=== PATIENT | female | born 1980 | race Caucasian/White ===

== ENCOUNTER 2024-10-18 15:12 | Emergency (ER) | payer OTHER, SELFPAY ==
[2024-10-18 15:14] VITALS: BP 153/97; PULSE 82; RESP 18; TEMP 36.8; O2SAT 99; BMI 36.9
[2024-10-18 15:16] VITALS: BP 153/97; PULSE 82; RESP 17; TEMP 36.8; O2SAT 99
--- NOTE | 2024-10-18 15:27 | EX.ED.DYSGE1 ---
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 She states occasionally they are slightly swollen. She has no motor dysfunction. Occasionally she has the sensation both knees are swollen as well. She reports having a generalized rash a few days ago which resolved on its own. Her temperature last night was 99 ?F. She has no nausea, vomiting, chest pain, shortness of breath, upper respiratory symptoms, or GI symptoms. She is not on any medications other than [id number] ibuprofen as needed. PFSH <MARCELO Sandhu Last Filed: 10/18/24 17:04> PFS Medical History no medical history Home Medications ?Medication ?Instructions ?Recorded ?Last Taken ?Type naproxen 500 mg tablet (Naprosyn) 500 mg PO BID PRN pain #20 tabs 10/18/24 Unknown Rx Allergy/AdvReac Type Severity Reaction Status Date / Time No Known Allergies Allergy Verified 10/18/24 15:12 Family History no significant family his Surgical History (Updated 10/18/24 @ 15:29 by Becki Roman) Hx of cholecystectomy Social History Smoking Status: Never smoker ROS <MARCELO Sandhu - Last Filed: 10/18/24 17:04> ROS ED ROS Narrative Constitutional: Negative for fever, chills, malaise. CVS: Negative for chest pain. Respiratory: Negative for shortness of breath. GI: Negative for abdominal pain, nausea, vomiting. EXAM <MARCELO Sandhu - Last Filed: 10/18/24 17:04> Physical Exam Narrative Exam Narrative: CONST: Patient sitting in no acute distress. EYES: Normal inspection. NECK: Normal inspection. RESP: No respiratory distress, CTAB. CVS: Regular rate and rhythm, no murmur, no gallop. SKIN: Color normal, no rash, warm, dry, intact. EXTREMITIES: Normal appearance of upper and lower extremities. Full range of motion, 5/5 strength, normal sensation, 2+ radial and DP pulses. No skin changes, warmth or swelling is noted. NEURO: Alert and answering questions appropriately. PSYCH: Normal affect. Const Vital Signs: 10/18/24 15:14 10/18/24 15:16 10/18/24 15:22 Temperature 98.3 F 98.3 F Temperature Source Oral Oral Pulse Rate 82 82 Respiratory Rate 18 17 Respiratory Effort Normal Non-Labored Respiratory Pattern Normal Blood Pressure 153/97 H 153/97 H Blood Pressure Mean 115 115 Pulse Ox 99 99 Oxygen Delivery Method Room Air Room Air 10/18/24 16:30 Temperature 98.3 F Temperature Source Pulse Rate 82 Respiratory Rate 17 Respiratory Effort Respiratory Pattern Blood Pressure 153/97 H Blood Pressure Mean 115 Pulse Ox 99 Oxygen Delivery Method <Dr. Joesph Toribio DO - Last Filed: 10/20/24 14:18> Physical Exam Const Vital Signs: 10/18/24 15:14 10/18/24 15:16 10/18/24 15:22 Temperature 98.3 F 98.3 F Temperature Source Oral Oral Pulse Rate 82 82 Respiratory Rate 18 17 Respiratory Effort Normal Non-Labored Respiratory Pattern Normal Blood Pressure 153/97 H 153/97 H Blood Pressure Mean 115 115 Pulse Ox 99 99 Oxygen Delivery Method Room Air Room Air 10/18/24 16:30 Temperature 98.3 F Temperature Source Pulse Rate 82 Respiratory Rate 17 Respiratory Effort Respiratory Pattern Blood Pressure 153/97 H Blood Pressure Mean 115 Pulse Ox 99 Oxygen Delivery Method MDM <MARCELO Sandhu - Last Filed: 10/18/24 17:04> [facility] Narrative Medical decision making narrative: History gathered from: Patient and spouse 44-year-old female presents with 1 week of bilateral hand pain and tingling. Reports occasional swelling which is not present now. She appears well and nontoxic. Vital signs stable. Her exam is completely benign. Upper and lower extremities appear normal and are neurovascularly intact. Labs show WBC of 3.6. Hemoglobin normal at 12.5. Platelets 166. Chemistry panel unremarkable. Glucose is 117. She was treated with IV Toradol and I prescribed naproxen. Differential includes but not limited to peripheral neuropathy, rheumatological process/arthropathy etc. I recommended follow-up with her primary care doctor for further evaluation and she was discharged in stable condition. Lab Data Labs: Laboratory Results - last 24 hr 10/18/24 15:29 WBC 3.6 L RBC 3.80 L Hgb 12.5 Hct 34.5 L MCV 90.8 MCH 32.9 H MCHC 36.2 H RDW Std Deviation 40.6 RDW Coeff of Rico 12.3 Plt Count 166 MPV 11.5 Immature Gran % (Auto) 0.600 Neut % (Auto) 70.0 Lymph % (Auto) 16.6 L Dixie % (Auto) 8.6 Eos % (Auto) 3.9 Baso % (Auto) 0.3 Absolute Neuts (auto) 2.5 Absolute Lymphs (auto) 0.60 L Nucleated RBC % 0 Differential Comment SEE COMMENT Atypical Lymphocytes 1+ Platelet Estimate ADEQUATE RBC Morphology N CHROM Anisocytosis RARE Macrocytosis RARE Sodium 139 Potassium 3.9 Chloride 104 Carbon Dioxide 25.2 Anion Gap 10 BUN 9 Creatinine 0.72 Estim Creat Clear Calc 110.17 Est GFR (MDRD) Non-Af 107 BUN/Creatinine Ratio 12.8 Glucose 117 H Calcium 9.1 Magnesium 2.1 <Dr. Joesph Darden-Concepcion, DO - Last Filed: 10/20/24 14:18> [facility] MDM Narrative Medical decision making narrative: History gathered from: Patient and spouse 44-year-old female presents with 1 week of bilateral hand pain and tingling. Reports occasional swelling which is not present now. She appears well and nontoxic. Vital signs stable. Her exam is completely benign. Upper and lower extremities appear normal and are neurovascularly intact. Labs show WBC of 3.6. Hemoglobin normal at 12.5. Platelets 166. Chemistry panel unremarkable. Glucose is 117. She was treated with IV Toradol and I prescribed naproxen. Differential includes but not limited to peripheral neuropathy, rheumatological process/arthropathy etc. I recommended follow-up with her primary care doctor for further evaluation and she was discharged in stable condition. Supervisory Physician Note Patient was seen and examined with the Advanced Practice Provider. Nursing notes and vital signs have been reviewed. Pertinent old records have been reviewed. I agree with the essential elements of the JERRI's history, physical exam, assessment, and plan. The differential diagnosis and management options were discussed with the JERRI. I participated in determining and agree with the management, procedures, final impression and disposition as documented. See changes noted by me. Please see addendum or separate note for any additional details. Gen: A&O x3, NAD Head: Normocephalic, atraumatic Eyes: No sclera icterus, conjunctiva clear, PERRL, EOMI ENT: Moist mucous membranes Neck: Trachea midline, No JVD CV: RRR, no murmurs, no peripheral edema Resp: Lungs CTA BL, no w/r/c GI: Abd soft, non-distended, non-tender, no r/r/g Musc: Full ROM, no deformity, extremities and joints nontender, no swelling/erythema/warmth of any body part including the joints, radial/DP/PT pulses +2 bilaterally Skin: Warm, dry, no rash Neuro: Alert, oriented, grossly intact, sensation intact Psych: Cooperative, appropriate mood and affect Lab Data Labs: Laboratory Results - last 24 hr 10/18/24 15:29 WBC 3.6 L RBC 3.80 L Hgb 12.5 Hct 34.5 L MCV 90.8 MCH 32.9 H MCHC 36.2 H RDW Std Deviation 40.6 RDW Coeff of Rico 12.3 Plt Count 166 MPV 11.5 Immature Gran % (Auto) 0.600 Neut % (Auto) 70.0 Lymph % (Auto) 16.6 L Dixie % (Auto) 8.6 Eos % (Auto) 3.9 Baso % (Auto) 0.3 Absolute Neuts (auto) 2.5 Absolute Lymphs (auto) 0.60 L Nucleated RBC % 0 Differential Comment SEE COMMENT Atypical Lymphocytes 1+ Platelet Estimate ADEQUATE RBC Morphology N CHROM Anisocytosis RARE Macrocytosis RARE Sodium 139 Potassium 3.9 Chloride 104 Carbon Dioxide 25.2 Anion Gap 10 BUN 9 Creatinine 0.72 Estim Creat Clear Calc 110.17 Est GFR (MDRD) Non-Af 107 BUN/Creatinine Ratio 12.8 Glucose 117 H Calcium 9.1 Magnesium 2.1 Discharge Plan Triage Chief Complaint: General Illness ED Midlevel Provider: Brooke Giles ED Provider: Joesph Toribio Dx/Rx/DC Orders Clinical Impression: Bilateral hand pain Instructions: ED Pain, Acute, Uncertain Cause Prescriptions: New naproxen [Naprosyn] 500 mg tablet 500 mg PO BID PRN (Reason: pain) Qty: 20 0RF Primary Care Provider: Hai Park Referrals: NOT,DEFINED [Non-Staff] - Activity Restrictions/Additional Instructions: I am not sure what is causing your hand pain. Your white blood cell count was slightly low but the rest of your labs look normal. You need to follow-up with your primary care doctor for further evaluation. If you have ongoing joint or hand pains they may need to do rheumatology testing. Take the naproxen as needed and you can use [id number] Tylenol every 6 hours as well if needed. Print Language: Norwegian Disposition Disposition: Home, Self Care Discharge Date/Time: 10/18/24 16:33
[2024-10-18 15:49] LABS: Absolute Neutrophil Count 2.5 X10^3/uL (2.0-7.7); Basophil# 0.01 X10^3/uL; Basophil% 0.3 % (0-1); Eosinophil# 0.14 X10^3/uL; Eosinophils% 3.9 % (0-5); Hematocrit 34.5 % (37-47); Hemoglobin 12.5 g/dL (12.0-15.0); Lymphocyte % 16.6 % (19-41); Mean Corp Hgb Conc 36.2 g/dL (32-36); Mean Corpuscular Hgb 32.9 pg (27.0-32.0); Mean Corpuscular Volume 90.8 fL (81-99); Mean Platelet Vol. 11.5 fl (6.2-12.0); Monocyte# 0.31 X10^3/uL; Monocyte% 8.6 % (0-10); NRBC Flagged by Analyzer 0 % (0-5); Neutrophil # 2.53 X10^3/uL (2.7-7.7); POSITIVE DIFFERENTIAL YES; POSITIVE MORPHOLOGY YES; Platelet Count 166 K/mm3 (150-450); RBC Distribution Width CV 12.3 % (11.6-14.6); RBC Distribution Width SD 40.6 fl (35.1-43.9); White Blood Count 3.6 K/mm3 (4.4-11.0)
[2024-10-18] MEDS: Ketorolac 15 MG/ML Vial IV (15:55)
[2024-10-18 16:06] LABS: Anion Gap 10 (5-15); BUN 9 mg/dL (4-19); BUN/Creat Ratio 12.8 RATIO (10-20); Calcium,Total 9.1 mg/dL (7.6-11.0); Carbon Dioxide 25.2 mmol/L (21.0-32.0); Chloride 104 mmol/L (98-108); Creatinine, Serum 0.72 mg/dL (0.70-1.20); EST Glomerular Filtration Rate 107 (>60); Estimated Creatinine Clearance 110.17 ml/min (50-250); Glucose 117 mg/dL (70-99); Magnesium 2.1 mg/dL (1.5-2.2); Potassium 3.9 mmol/L (3.3-5.1); Sodium Level 139 mmol/L (133-145)
[2024-10-18 16:16] LABS: Differential Indicated SCAN CRITERIA MET
[2024-10-18 16:22] LABS: Anisocytosis RARE; Atypical Lymphocyte 1+ %; Macrocytosis RARE; Platelet Estimate ADEQUATE (ADEQ); Red Cell Morphology N CHROM NORMAL (NORM C&C)
[2024-10-18 16:30] VITALS: BP 153/97; PULSE 82; RESP 17; TEMP 36.8; O2SAT 99
== END 2024-10-18 16:33 | disposition home or self-care (01) ==
PROVIDERS: Physician Assistant; Emergency Provider Surgery; PCP Family Medicine; Visit Provider Surgery
DX: M79.641 Pain in right hand (principal); R73.03 Prediabetes; M79.642 Pain in left hand; R20.2 Paresthesia of skin
CPT/HCPCS: 80048; 83735; 85025; 96374; 99283; A4216